=== PATIENT | male | born 1965 | race Caucasian/White ===

== ENCOUNTER 2024-07-08 10:50 | Emergency (ER) | payer BC ==
[~2024-07-08] VITALS: Ht 188 cm; Wt 113.4 kg
[2024-07-08] MEDS ORDERED: ASPIRIN 325 MG TABLET ONE (11:17)
[2024-07-08] MEDS ORDERED: LABETALOL HCL IV 100MG VIAL ONE (11:18)
[2024-07-08 11:27] LABS: BASOPHILS % (AUTO) 0.3 % (0.0-2.0); EOSINOPHILS # (AUTO) 0.3 K/uL (0.0-0.7); EOSINOPHILS % (AUTO) 3.7 % (0.0-6.0); HEMATOCRIT 43 % (39-51); HEMOGLOBIN 14.9 g/dL (13.5-17.5); LYMPHOCYTES # (AUTO) 1.9 K/uL (0.8-4.8); LYMPHOCYTES % (AUTO) 23.5 % (20.0-44.0); MEAN CORPUSCULAR HEMOGLOBIN 30 PG (26.0-33.0); MEAN CORPUSCULAR HGB CONC 35 g/dl (31.0-36.0); MEAN CORPUSCULAR VOLUME 87 fL (80-96); MONOCYTES # (AUTO) 0.4 K/uL (0.1-1.30); MONOCYTES % (AUTO) 4.6 % (2.0-12.0); NEUTROPHILS # (AUTO) 5.5 K/uL (1.8-8.9); NEUTROPHILS % (AUTO) 67.9 % (43.0-81.0); PLATELET COUNT (AUTO) 184 K/uL (150-450); RED BLOOD CELL COUNT(AUTO) 4.93 MIL/uL (4.5-6.0); WHITE BLOOD COUNT (AUTO) 8.1 K/uL (4.3-11.0)
[2024-07-08] MEDS ORDERED: METOPROLOL TARTRATE INJ 5 MG/5 ML AMPUL ONE (11:28)
[2024-07-08] MEDS: ASPIRIN 325 MG TABLET PO ONE (11:34)
[2024-07-08 11:36] LABS: CARBON DIOXIDE 25 mmol/L (21-32); CHLORIDE 104 mmol/L (98-107); CREATININE 1.4 mg/dL (0.6-1.3); GLUCOSE 201 mg/dL (74-106); POTASSIUM 4.2 mmol/L (3.5-5.1); SODIUM SERUM 135 mmol/L (136-145); UREA NITROGEN, BLOOD 9 mg/dL (7-18)
[2024-07-08] MEDS: METOPROLOL TARTRATE INJ 5 MG/5 ML AMPUL IVP ONE (11:39)
[2024-07-08] MEDS ORDERED: IOHEXOL-350 100 ML VIAL IV ONE (12:56)
[2024-07-08] MEDS ORDERED: IV NS 0.9% 250 ML IV ONE (12:56)
[2024-07-08] MEDS: IV NS 0.9% 1,000 ML BAG IV ONE (13:30)
[2024-07-08 16:03] VITALS: BP 160/92; TEMP 97.6; O2SAT 100
== END 2024-07-08 16:03 | disposition home or self-care (01) ==
LOC: ER 10:58
DX: R07.89 Other chest pain (principal); I10 Essential (primary) hypertension; F17.210 Nicotine dependence, cigarettes, uncomplicated
CPT/HCPCS: 99285; 96374; 71275; 71045; 96361; 93005 ×3; 85025; 80048; 85378; 36415; 84484 ×2; J3490; J7030; J7050; Q9967